=== PATIENT | female | born 1990 | race Caucasian/White ===

== ENCOUNTER 2017-04-19 14:56 | Inpatient (IN) | payer MEDICAID ==
[~2017-04-19] VITALS: Ht 162.6 cm; Wt 60.0 kg
[2017-04-19] MEDS ORDERED: SODIUM CHLORIDE 0.9% 1,000 ML IV ONE (18:06)
[2017-04-19 18:21] LABS: Basophils # (auto) 0 uL; Basophils % (auto) 0.2 % (0.0-2.0); Eosinophils # (auto) 0 uL; Hematocrit 42.2 % (36.0-46.0); Hemoglobin 14.4 g/dL (12.2-16.2); Lymphocytes # (auto) 0.8 uL; Lymphocytes % (auto) 6.6 % (10.0-50.0); Mean Corpuscular Volume 91.2 fL (80.0-100.0); Monocytes # (auto) 0.4 uL; Monocytes % (auto) 3.2 % (0.0-12.0); Neutrophils # (auto) 10.7 uL; Platelet Count (auto) 252 10^3/uL (140-450); Red Blood Cells 4.63 10^6/uL (4.0-5.20); Red Cell Distribution Width 12.6 % (11.8-14.3); White Blood Cell 11.8 10^3/uL (4.4-10.8)
[2017-04-19 18:41] LABS: Albumin 4.2 g/dL (3.4-5.0); Bilirubin, Total 0.4 mg/dL (0.2-1.0); Calcium 8.9 mg/dL (8.5-10.1); Potassium 3.8 mmol/L (3.5-5.1); Total Protein 8.4 g/dL (6.4-8.2)
[2017-04-19] MEDS ORDERED: PROMETHAZINE HCL 25 MG/ML 1ML IV ONE (19:00)
[2017-04-19 19:08] LABS: Urine Bacteria NONE SEEN /hpf (None Seen); Urine Blood Negative /uL (Negative); Urine Mucus FEW (None Seen); Urine Specific Gravity 1.028 (1.001-1.035); Urine WBC 3 /hpf (0 - 5)
[2017-04-19 19:10] LABS: Alcohol, Urine < 3.0 mg/dL (0-5); Amphetamine Screen, Urine POSITIVE (NEGATIVE); Barbiturate Scree,Urine NEGATIVE (NEGATIVE); Benzodiazephine Screen, Urine NEGATIVE (NEGATIVE); Cannabinoid Screen, Urine POSITIVE (NEGATIVE); Cocaine Screen, Urine NEGATIVE (NEGATIVE); Opiate Scree,Urine NEGATIVE (NEGATIVE); Phencyclidine Screen, Urine NEGATIVE (NEGATIVE)
[2017-04-19] MEDS ORDERED: LORazepam 2MG/ML-1ML VIAL ONE (19:28)
[2017-04-19] MEDS ORDERED: LORazepam 2MG/ML-1ML VIAL IV ONE (19:30)
[2017-04-19 19:41] LABS: INR 0.99 (0.9-1.15); Prothrombin Time 10.8 sec (9.37-12.3)
[2017-04-19] MEDS ORDERED: ONDANSETRON HCL 4 MG/2 ML VIAL IV PRN (23:15)
[2017-04-19] MEDS ORDERED: LORazepam 2MG/ML-1ML VIAL IV PRN (23:15)
[2017-04-19] MEDS ORDERED: ACETAMINOPHEN 500 MG TAB PO PRN (23:15)
[2017-04-19] MEDS ORDERED: VALPROATE INJ 1,000 MG in SODIUM CHL 0.9% 100 ML IV ONE (23:30)
[2017-04-19] MEDS ORDERED: LEVETIRACETAM INJ 1,000 MG in D5W 5% 100 ML IV ONE (23:30)
[2017-04-19] MEDS ORDERED: VALPROATE SODIUM 100 MG/ML 5ML VIAL IV ONE (23:54)
[2017-04-20] VITALS (7 sets, daily range): BP systolic 89–116; BP diastolic 42–67
[2017-04-20] MEDS ORDERED: VALPROATE SODIUM 100 MG/ML 5ML VIAL IV ONE (00:16)
[2017-04-20] MEDS ORDERED: cefTRIAXone 1GM/10ml IVPUSH 10 ML IV ONE (01:15)
[2017-04-20] MEDS ORDERED: metroNIDAZOLE 500MG/100ML 100 ML IV ONE (01:15)
[2017-04-20] MEDS ORDERED: DIVA500T53 PO (04:11)
[2017-04-20] MEDS ORDERED: LEVE500T22 PO (04:11)
[2017-04-20] MEDS: LEVETIRACETAM 500 MG TAB PO SCH ×2 (10:28→21:49)
[2017-04-20 11:55] LABS: Basophils # (auto) 0.1 uL; Basophils % (auto) 0.8 % (0.0-2.0); Eosinophils # (auto) 0 uL; Eosinophils % (auto) 0.1 % (0.0-7.0); Hematocrit 38.9 % (36.0-46.0); Hemoglobin 13.1 g/dL (12.2-16.2); Lymphocytes # (auto) 1.1 uL; Lymphocytes % (auto) 12.4 % (10.0-50.0); Mean Corpuscular Hemoglobin 30.7 pg (28.0-32.0); Mean Corpuscular Hgb Conc. 33.7 g/dL (32.0-36.0); Mean Corpuscular Volume 91.1 fL (80.0-100.0); Monocytes # (auto) 0.2 uL; Monocytes % (auto) 2.7 % (0.0-12.0); Neutrophils # (auto) 7.4 uL; Platelet Count (auto) 209 10^3/uL (140-450); Red Blood Cells 4.28 10^6/uL (4.0-5.20); Red Cell Distribution Width 12.5 % (11.8-14.3); White Blood Cell 8.8 10^3/uL (4.4-10.8)
[2017-04-20 12:10] LABS: BUN/Creatinine Ratio 15.7; Calcium 8.1 mg/dL (8.5-10.1); Potassium 3.6 mmol/L (3.5-5.1)
[2017-04-20] MEDS ORDERED: NICOTINE 7MG/24HR TOPICAL PATCH TD ONE (18:30)
[2017-04-21 05:08] VITALS: BP 98/57
[2017-04-21 08:00] VITALS: BP 102/52
[2017-04-21] MEDS: LEVETIRACETAM 500 MG TAB PO SCH ×2 (10:30→22:10)
[2017-04-21 13:00] VITALS: BP 122/64
[2017-04-21 17:00] VITALS: BP 105/66
[2017-04-21] MEDS ORDERED: ZOLPIDEM TARTRATE 5 MG TAB PO PRN (19:15)
[2017-04-22 08:30] VITALS: BP 106/51
[2017-04-22 09:00] VITALS: BP 106/51
[2017-04-22] MEDS: LEVETIRACETAM 500 MG TAB PO SCH (09:27)
[2017-04-22] MEDS ORDERED: DIVA500T53 PO (10:24)
[2017-04-22] MEDS ORDERED: KEP500T PO (10:24)
[2017-04-22] MEDS ORDERED: DIVA250T6 PO (10:25)
[2017-04-22 13:00] VITALS: BP 107/65
[2017-04-22 13:03] VITALS: BP 106/51
== END 2017-04-22 16:40 | disposition home or self-care (01) | DRG 53 ==
LOC: ER 14:56 → OVERFLOW 14:57 → CENTRAL 04-20 00:50 → EAST 04-20 09:32 → UNDODISIN 04-22 19:26
PROVIDERS: ADMIT Nurse Practitioner Family; ATTEND Internal Medicine
DX: G40.209 Localization-related (focal) (partial) symptomatic epilepsy and epileptic syndromes with complex partial seizures, not intractable, without status epilepticus (principal); S09.90XA Unspecified injury of head, initial encounter; F15.10 Other stimulant abuse, uncomplicated; F12.10 Cannabis abuse, uncomplicated; F41.9 Anxiety disorder, unspecified; F17.210 Nicotine dependence, cigarettes, uncomplicated; F31.9 Bipolar disorder, unspecified; F51.04 Psychophysiologic insomnia; F19.10 Other psychoactive substance abuse, uncomplicated; R32 Unspecified urinary incontinence; W18.39XA Other fall on same level, initial encounter; Y93.89 Activity, other specified; Y92.89 Other specified places as the place of occurrence of the external cause; Y99.8 Other external cause status; Z82.49 Family history of ischemic heart disease and other diseases of the circulatory system
CPT/HCPCS: 36415; 70450; 71045; 80048; 80053; 80164; 80307; 81001; 81025; 82962; 83735; 85025; 85610; 85730; 94761; 96361; 96374; 96375; J3490; J7060